=== PATIENT | male | born 1965 | race Caucasian/White ===

== ENCOUNTER 2021-04-07 09:18 | Emergency (ER) | payer MEDICARE, MEDICAID, SELFPAY ==
[2021-04-07 09:28] VITALS: BP 108/75; PULSE 94; RESP 16
--- NOTE | 2021-04-07 09:40 | W.ED.GENAD ---
Discharge Plan Disposition Patient Disposition: HOME Condition: Stable Discharge Details Clinical Impression: Agitation, Encounter for psychiatric assessment Primary Care Provider: None,None ED Provider: Rody Infante Home Meds and New Rx's Prescriptions: No Action lithium carbonate 600 mg Capsule 600 mg PO BID RF: 0 Discharge Instructions Instructions: Bipolar Disorder (ED) Additional Instructions: Follow up with primary care provider in 3-5 days. Return to ED sooner if any worsening or concerns. Increase oral fluids. Please take your medication as previously prescribed you were given lithium dose here in the department. Please follow-up with your psychiatric provider. Medical Decision Making 56-year-old male presents to the ER in police custody with chief complaint of agitation and request for mental health evaluation. Patient was engaged in a verbal altercation prior to arrival. Per police upon arrival they stated that he was making statements such as just run me over with a car but denies any current suicidal ideation. On initial presentation he is agitated and using verbal obscenities, he is handcuffed upon arrival, he reports that he does have a history of bipolar and he has been off of his lithium for the last couple of days. He reports that he takes 1200 mg of lithium. He denies any other past medical history. He does endorse smoking denies any drugs or alcohol. On initial exam he is refusing to have blood work drawn or urine sample given. Patient is very hostile and told me to get the fuck out of my face upon initial examination. Unable to access previous documents from [facility]. However I was able to see the patient does have a history of bipolar disorder and alcohol dependence. Ordered mental health evaluation [facility] so and instructed staff to place patient into paper scrubs. At this time he is very agitated and refusing to give urine or blood sample. We'll hold off on that at this time. At this time, patient denies SI or HI. [facility] is no longer here with patient, patient does state that he has been vaccinated with the J& J vaccination. 1019: Patient is making the female CPSso very uncomfortable and making him seen comments to her such as asking her if she is telling her how pretty she is and how pretty her eyes are. Patient yelling obscenities at public health staff nurse stating you are not a good nurse, you didn't ask me if I wanted a sandwich get the fuck out. 1056: Inez with [facility] performing mental health eval via [employer] at this time. 1109: Per Inez with [facility] patient has been evaluated and is okay to be released. At this time he is not suicidal or homicidal. We did give him his dose of lithium while here in the department. Will instruct him to follow-up with his psychiatric team continue taking his medications as previously prescribed. Patient discharged from department, ambulatory. HPI General Mode of arrival: ambulatory (With [facility]). Date/Time Provider Initiated Documentation: 04/07/21 09:20. Limitations to Documentation: altered mental status. Information obtained by: patient, police and RN notes reviewed. HPI Narrative: 56-year-old male presents to the ER in police custody with chief complaint of agitation and request for mental health evaluation. Patient was engaged in a verbal altercation prior to arrival. Per police upon arrival they stated that he was making statements such as just run me over with a car but denies any current suicidal ideation. On initial presentation he is agitated and using verbal obscenities, he is handcuffed upon arrival, he reports that he does have a history of bipolar and he has been off of his lithium for the last couple of days. He reports that he takes 1200 mg of lithium. He denies any other past medical history. He does endorse smoking denies any drugs or alcohol. On initial exam he is refusing to have blood work drawn or urine sample given. Related Data Home Medications Medication Instructions Recorded Confirmed lithium carbonate 600 mg PO BID 04/07/21 04/07/21 Allergies Allergy/AdvReac Type Severity Reaction Status Date / Time No Known Allergies Allergy Unverified 04/07/21 09:41 Review of Systems All systems reviewed & are unremarkable except as noted in HPI and below Psychiatric Psychiatric: Reports as per HPI and Reports irritability PFSH All Active Problems (Updated 04/07/21 @ 11:12 by Rody Infante) Agitation (Acute) Encounter for psychiatric assessment (Acute) Medical History (Updated 04/07/21 @ 11:12 by Rody Infante) Alcohol dependence Bipolar 1 disorder Social History Smoking/Tobacco Use Status: Current every day Smoking risk assessment performed?: Yes Alcohol Intake: never Exam Narrative Exam Narrative: Constitutional: Alert and oriented x3. Appears stated age. Normal body habitus. Head: Normocephalic, no trauma. Eyes: Pupils PERRL, Red reflex noted, EOM's intact. Eyelids symmetrical without lesions, discharge, or swelling. Chest: RRR, Normal S1, S2, distal pulses intact. Resp: Lungs clear to auscultation bilaterally, no wheezes, rales, or rhonchi. Abdomen: Soft, non-distended, Normoactive bowel sounds all 4 quads. Musculoskeletal: Normal gait, 5/5 strength to all four extremities. Skin: No suspicious rashes or lesions. Capillary refill less than 2 sec. Neurologic: Cranial nerves II-XII intact. Alert and oriented x 3. Motor: No deficits noted. Sensory: Intact bilaterally all 4 extremities. . Hematologic/Lymphatic: No ecchymosis, no lymphadenopathy. Psych Speech and Movement: agitated and speech clear Mood: angry and irritable mood Affect: hostile and irritable affect Attitude: avoids eye contact
--- NOTE | 2021-04-07 10:00 | NUR.NOTE ---
Addendum entered by Liam High RN 04/07/21 10:03: While changing into blue scrubs patient states Do you want to see my balls and emy? I am circumcised. [employer] set limits with patient regarding foul language and respecting staff. Original Note: Patient changed into blue scrubs. Still refusing to give a urine sample or allow a blood draw.
[2021-04-07] MEDS: Lithium Carbonate 150 MG CAP 600 MG PO (10:08)
--- NOTE | 2021-04-07 10:16 | NUR.NOTE ---
Addendum entered by Liam High RN 04/07/21 10:30: Patient given crackers at his request. Original Note: Patient making sexual comments to [facility] you are so pretty, you have pretty eyes. Are you . Insecticide Supervisor informed patient to stop speaking to staff in that manner. Stating I am a prisoner with my water. Standing in the door of his room making faces.
--- NOTE | 2021-04-07 10:40 | NUR.NOTE ---
Patient offered nutrition. Refuses food at this time, but was given decaf coffee. Is willing to now take a nicotine patch. Awaiting byron.
[2021-04-07] MEDS: Nicotine 14 MG/24 HR PATCH TD (11:07)
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
== END 2021-04-07 11:29 | disposition home or self-care (01) ==
PROVIDERS: Emergency Provider Registered Nurse Emergency
DX: R45.1 Restlessness and agitation (principal); F31.9 Bipolar disorder, unspecified; F17.210 Nicotine dependence, cigarettes, uncomplicated
CPT/HCPCS: 99284; 99283

== ENCOUNTER 2022-02-27 15:09 | Emergency (ER) | payer MEDICARE, MEDICAID, SELFPAY ==
[2022-02-27 15:16] VITALS: BP 132/88; PULSE 90; RESP 14; TEMP 36.2; O2SAT 99
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
[2022-02-27] MEDS: Lidocaine/Epinephri/Tetracaine Topical Gel 3 ML TP (15:51)
[2022-02-27] MEDS: Nicotine 21 MG/24 HR PATCH (15:51)
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
--- NOTE | 2022-03-09 11:40 | NUR.NOTE ---
Addendum entered by Vicky Montemayor 03/28/22 12:31: 03/29/[address] Eleuterio Coburn, provider note and CT report faxed to [facility] @ [phone]. Addendum entered by Vicky Montemayor 03/09/22 11:47: Result and letter signed by Dr Eleuterio Coburn mailed to pt. Original Note: Nursing Note: Accessed pt chart to find contact information for Dr Eleuterio Coburn who needed to speak with someone about a CT result.
== END 2022-02-27 16:19 ==
PROVIDERS: Emergency Provider Student in an Organized Health Care Education/Training Program
DX: S01.01XA Laceration without foreign body of scalp, initial encounter (principal); Z23 Encounter for immunization; Z53.29 Procedure and treatment not carried out because of patient's decision for other reasons; W22.01XA Walked into wall, initial encounter
CPT/HCPCS: 90471; 99284; 70450